=== PATIENT | female | born 2000 | race African-American/Black ===

== ENCOUNTER 2018-05-31 11:04 | Emergency (ER) | payer MEDICAID ==
[~2018-05-31] VITALS: Ht 175.3 cm; Wt 153.8 kg
[2018-05-31 11:04] VITALS: BP 126/91
== END 2018-05-31 11:40 | disposition home or self-care (01) ==
LOC: ER 11:09
DX: J20.9 Acute bronchitis, unspecified (principal); Z90.89 Acquired absence of other organs
CPT/HCPCS: 99283; A4606